=== PATIENT | female | born 1965 | race Caucasian/White ===

== ENCOUNTER 2017-10-09 11:43 | Emergency (ER) | payer SELFPAY ==
[2017-10-09] MEDS ORDERED: Ondansetron 4 MG Tab.DIS PO ONE (11:59)
--- NOTE | 2017-10-09 12:33 | EDM.PDOC ---
ED HPI GENERAL MEDICAL PROBLEM - General Chief Complaint: Gastrointestinal Problem Stated Complaint: BAD REACTION TO MEDICINE Time Seen by Provider: 10/09/17 12:20 Source of Information: Reports: Patient History Limitations: Reports: Other (doesn't know name of meds given in clinic yesterday. ) - History of Present Illness INITIAL COMMENTS - FREE TEXT/NARRATIVE: 52 yo female was seen in the clinic yesterday for a ? infected spider bite on her back. Was given a pain med and an antibiotic that she started taking about 12:30 pm yesterday. She felt fine when she went to bed. Awoke in the night with nausea that was still present when she got up. On her way to work a few minutes ago she started vomiting. She called the clinic and they would not see her, told her to go to the ER. No diarrhea. Doesn't think she has ever had either of the two meds given yesterday before. Onset: Today Onset Date: 10/09/17 Onset Time: 04:30 Duration: Hour(s):, Getting Worse Location: Reports: Generalized Quality: Reports: Other (no pain) Severity: Moderate Improves with: Reports: None Worsens with: Reports: Other (? 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: Reports: Other (see below) (none) - Related Data Allergies Allergy/AdvReac Type Severity Reaction Status Date / Time No Known Allergies Allergy Verified 10/09/17 12:03 Home Meds: Home Meds Clobetasol [Clobetasol Propionate 0.05%] 30 gm TOP BID 10/09/17 [History] Sulfamethoxazole/Trimethoprim [Bactrim Ds Tablet] 1 each PO BID 10/09/17 [ History] traMADol [Ultram] 50 mg PO Q6H PRN 10/09/17 [History] Past Medical History [employer] History: Reports: Musculoskeletal History: Reports: Arthritis, Neck Pain, Chronic Neurological History: Reports: Migraines - Past Surgical History Female Surgical History: Reports: Tubal Ligation Social & Family History - Tobacco Use Smoking Status *Q: Never Smoker - Recreational Drug Use Recreational Drug Use: No ED ROS GENERAL - Review of Systems Review Of Systems: See Below Constitutional: Reports: No Symptoms HEENT: Reports: No Symptoms Respiratory: Reports: No Symptoms Cardiovascular: Reports: No Symptoms GI/Abdominal: Reports: Nausea, Vomiting. Denies: Black Stool, Bloody Stool, Constipation, Diarrhea, Hematemesis, Hematochezia, Melena : Reports: No Symptoms Musculoskeletal: Reports: No Symptoms Skin: Reports: No Symptoms Neurological: Reports: No Symptoms ED EXAM, GI/ABD - Physical Exam Exam: See Below Exam Limited By: No Limitations General Appearance: Alert, WD/WN, No Apparent Distress Eyes: Bilateral: Normal Appearance Ears: Normal External Exam, Normal Canal, Hearing Grossly Normal Nose: Normal Inspection, Normal Mucosa, No Blood Throat/Mouth: Normal Inspection, Normal Lips, Normal Oropharynx, Normal Voice, No Airway Compromise Head: Atraumatic, Normocephalic Neck: Normal Inspection, Supple, Non-Tender Respiratory/Chest: No Respiratory Distress, Lungs Clear, Normal Breath Sounds, No Accessory Muscle Use Cardiovascular: Regular Rate, Rhythm, No Edema GI/Abdominal Exam: Normal Bowel Sounds, Soft, Non-Tender, No Distention Back Exam: Normal Inspection. No: CVA Tenderness (R), CVA Tenderness (L) Extremities: Normal Inspection, Normal Range of Motion, Non-Tender, No Pedal Edema Neurological: Alert, Oriented, CN II-XII Intact, Normal Cognition, No Motor/ Sensory Deficits Psychiatric: Normal Affect, Normal Mood Skin Exam: Warm, Dry, Intact, Normal Color, No Rash Lymphatic: No Adenopathy Course - Vital Signs Text/Narrative:: Feeling better after IM Vistaril and Zofran ODT. Last Recorded V/S: Last Vital Signs Temp 35.9 C 10/09/17 12:00 Pulse 69 10/09/17 12:00 Resp 16 10/09/17 12:00 BP 160/90 H 10/09/17 12:00 Pulse Ox 98 10/09/17 12:00 Orthostatic Blood Pressure [ 168/94 Standing] Orthostatic Blood Pressure [ 171/132 Sitting] Orthostatic Blood Pressure [ 144/81 Supine] - Orders/Labs/Meds Orders: Active Orders 24 hr Category Date Time Status Orthostatic Vital Signs [RC] ASDIRECTED Care 10/09/17 11:59 Active Meds: Medications Discontinued Medications Generic Name Dose Route Start Last Admin Trade Name Freq PRN Reason Stop Dose Admin Hydroxyzine HCl 75 mg 10/09/17 12:53 07/17/18 13:13 Vistaril IM 10/09/17 12:54 75 mg ONETIME ONE Administration Ondansetron HCl 4 mg 10/09/17 11:59 10/09/17 12:43 Zofran Odt PO 10/09/17 12:00 4 mg ONETIME ONE Administration Departure - Departure Time of Disposition: 14:03 Disposition: Home, Self-Care 01 Condition: Fair Clinical Impression: Vertigo Nausea and vomiting Qualifiers: Vomiting type: unspecified Vomiting Intractability: non-intractable Qualified Code(s): R11.2 - Nausea with vomiting, unspecified - Discharge Information *PRESCRIPTION DRUG MONITORING PROGRAM REVIEWED*: Not Applicable *COPY OF PRESCRIPTION DRUG MONITORING REPORT IN PATIENT DIXIE: Not Applicable Instructions: Vertigo, [id number] Referrals: PCP,None [Primary Care Provider] - Forms: ED Department Discharge Additional Instructions: Take your antibiotic(TMP/SMZ) every 12 hrs with food. Hold the tramadol and substitute acetaminophen for pain control. Take the meclizine as needed for vertigo symptoms. Off work today. Recheck as needed. - My Orders Last 24 Hours: My Active Orders 10/09/17 11:59 Orthostatic Vital Signs [RC] ASDIRECTED - Assessment/Plan Last 24 Hours: My Active Orders 10/09/17 11:59 Orthostatic Vital Signs [RC] ASDIRECTED
[2017-10-09] MEDS ORDERED: hydrOXYzine HCl 100 MG/2 ML SDV IM ONE (12:53)
== END 2017-10-09 14:16 | disposition home or self-care (01) ==
LOC: JP.ED 11:43
DX: R11.2 Nausea with vomiting, unspecified (principal); R42 Dizziness and giddiness
CPT/HCPCS: 96372; 99283; A9270; J3410